=== PATIENT | female | born 1980 | race Caucasian/White ===

== ENCOUNTER 2016-12-17 15:43 | Emergency (ER) | payer BC ==
[~2016-12-17] VITALS: Ht 162.6 cm; Wt 99.8 kg
[~2016-12-17 15:43] MED LIST: CLON0.5T3 PO; DOCU100C5 PO; FLUO10CA13 PO; HYDR-2666 PO; HYDR-79 PO; LEVO25TA4 PO; LOXA25CA PO; MAGN30OR PO; MELO-156 PO; OLME20TA PO; OLME40TA PO; OLME5TAB4 PO; OXCA600T PO; OXYC-244 PO; SUMA100T3 PO; SUMA100T4 PO; SUMA50TA3 PO; TOPI100T90 PO; ZALE10CA16 PO
[2016-12-17] MEDS ORDERED: DICYCLOMINE HCL 20 MG TABLET PO ONE (16:45)
--- NOTE | 2016-12-17 17:03 | ED.ADGEN ---
Past History Past Medical History: Anxiety, Depression Past Surgical History: Cholecystectomy, , Hysterectomy, Tubal ligation Smoking: Greater than 1 pack/day Alcohol Use: None Drug Use: None Adult General Chief Complaint Chief Complaint Intermittent abdominal pain HPI HPI Patient is a 36-year-old female presents with chronic intermittent migratory abdominal pain which has had extensive workup in the ED, PCP and by her GI physician. Most recently she had a CT of her abdomen pelvis on 10/28/17, which was treated a complex left ovarian cyst and stable right liver hemangioma. Similarly, she has had a small bowel follow-through per Dr. Zacarias at [facility] which reports as normal. Today's pain has been going on for the past several days that is localizing to her right upper quadrant. Patient states it is different normal because her pain normally migratory. Patient has had previous cholecystectomy hysterectomy and right cell nephrectomy. No fever, vomiting, diarrhea or constipation. No dysuria or urinary frequency or urgency. No other acute symptoms or complaints. Patient's computed at bedside by significant other. Review of Systems Review of Systems ROS as per HPI. Current Medications Current Medications Current Medications Medications (Trade) Dose Ordered Sig/Mike Start Time Stop Time Status Last Admin Dose Admin Dicyclomine HCl (Bentyl) 20 mg 1X ONCE 12/17/16 16:45 12/17/16 16:46 DC 12/17/16 16:45 20 MG Allergies Allergies Allergies Coded Allergies Type Severity Reaction Last Updated Verified egg Adverse Reaction Intermediate Nausea and Vomiting 11/28/15 Yes Physical Exam Physical Exam Constitutional: Well developed, well nourished, no acute distress. HENT: Normocephalic, atraumatic, bilateral external ears normal, oropharynx moist, no oral exudates, nose normal. Eyes: PERRLA, EOMI, conjunctiva normal. Neck: Normal range of motion. Cardiovascular:Heart rate regular rhythm, no murmur. Lungs & Thorax: Bilateral breath sounds clear to auscultation. Abdomen: Bowel sounds normal, soft, please see compromising exam, right upper quadrant pain. No tenderness, rebound rigidity or guarding. Skin: Warm, dry. Extremities: No tenderness. Neurologic: Alert and oriented X 3, normal motor function, normal sensory function, no focal deficits noted Psychologic: Affect normal, judgement normal, mood normal. EKG EKG [] Radiology/Procedures Radiology/Procedures [] Impressions: Chronic recurrent abdominal pain with benign abdominal exam Course & Med Decision Making Course & Med Decision Making Pertinent Labs and Imaging studies reviewed. (See chart for details) [Medical records and CT reviewed. Bentyl given. Recommend following up with PCP and or GI physician for further management. Return precautions reviewed. ] Final Impression Final Impression [1. Chronic abdominal pain] Problems: Dragon Disclaimer Dragon Disclaimer This chart was dictated in whole or in part using Voice Recognition software in a busy, high-work load, and often noisy Emergency Department environment. It may contain unintended and wholly unrecognized errors or omissions. REDDY RIVERA DO Dec 17, 2016 16:36
[2016-12-17 17:14] LABS: BILIRUBIN,URINE SMALL (NEG); CLARITY,URINE CLEAR; COLOR,URINE YELLOW; NITRITE,URINE NEG (NEG); UROBILINOGEN,URINE 2 mg/dL (0.2 mg/dL)
[2016-12-17 17:16] LABS: GLUCOSE,URINE NEG (NEG)
[2016-12-17 17:30] VITALS: BP 132/71
== END 2016-12-17 17:25 | disposition home or self-care (01) ==
LOC: ER 15:43
DX: G89.29 Other chronic pain (principal); R10.11 Right upper quadrant pain; F17.210 Nicotine dependence, cigarettes, uncomplicated; Z90.49 Acquired absence of other specified parts of digestive tract; Z90.710 Acquired absence of both cervix and uterus; Z91.012 Allergy to eggs
CPT/HCPCS: 81003; 99282; 99284

== ENCOUNTER 2017-07-29 20:21 | Emergency (ER) | payer BC ==
[~2017-07-29 20:21] MED LIST changes: +DOCU100C28 PO; -DOCU100C5 PO; -HYDR-2666 PO; +HYDR-2758 PO; -MELO-156 PO; +MELO7.5T29 PO; -OLME20TA PO; +OLME20TA19 PO; -OLME40TA PO; +OLME40TA12 PO; -OXYC-244 PO; +OXYC-327 PO; +TOPI100T8 PO; -TOPI100T90 PO; -ZALE10CA16 PO; +ZALE10CA44 PO
[2017-07-29 20:26] VITALS: BP 183/97
[2017-07-29 21:48] LABS: BILIRUBIN,URINE NEG (NEG); CLARITY,URINE CLEAR; COLOR,URINE YELLOW; GLUCOSE,URINE NEG (NEG); NITRITE,URINE NEG (NEG); UROBILINOGEN,URINE 0.2 mg/dL (0.2 mg/dL)
[2017-07-29 21:49] LABS: BACTERIA,URINE 0 /HPF (0-FEW); SQUAMOUS EPITHELIAL CELL,UR MOD /LPF; WBC,URINE OCC /HPF (0-4)
--- NOTE | 2017-07-29 23:00 | ED.ADGEN ---
Past History Past Medical History: Anxiety, Depression Past Surgical History: Cholecystectomy, , Hysterectomy, Tubal ligation Smoking: Greater than 1 pack/day Alcohol Use: None Drug Use: None Adult General Chief Complaint Chief Complaint Pelvic pain HPI HPI Patient is a 37-year-old female with history of PCOS hysterectomy who presents with left lower quadrant pain, 3 days. Pain is described as sharp, deep, worse with palpation and movement. Pain is nonradiating. Patient denies urinary frequency urgency, flank pain. No nausea vomiting or diarrhea. Denies constipation. No flank pain or history of kidney stones. Patient states pain is similar to previous ovarian cysts. She has appointment to see her MATERIAL MOVER in 2 weeks and has an appointment for an outpatient ultrasound in 1 week. Review of Systems Review of Systems Review symptoms as per history of present illness. All other review symptoms are negative. Allergies Allergies Allergies Coded Allergies Type Severity Reaction Last Updated Verified egg Adverse Reaction Intermediate Nausea and Vomiting 11/28/15 Yes Physical Exam Physical Exam Constitutional: Well developed, well nourished, no acute distress, non-toxic appearance. [] HENT: Normocephalic, atraumatic, bilateral external ears normal, oropharynx moist, no oral exudates, nose normal. [] Eyes: PERRLA, EOMI, conjunctiva normal, no discharge. [] Neck: Normal range of motion, no tenderness, supple, no stridor. [] Cardiovascular:Heart rate regular rhythm, no murmur [] Lungs & Thorax: Bilateral breath sounds clear to auscultation [] Abdomen: Bowel sounds normal, soft, left lower quadrant/pelvic pain, tenderness , no rebound rigidity or guarding. Obesity compromising exam. [] Skin: Warm, dry, no erythema, no rash. [] Back: No tenderness, no CVA tenderness. [] Extremities: No tenderness, no cyanosis, no clubbing, ROM intact, no edema. [] Neurologic: Alert and oriented X 3, normal motor function, normal sensory function, no focal deficits noted. [] Psychologic: Affect normal, judgement normal, mood normal. [] Current Patient Data Lab Results Laboratory Tests Test 07/29/17 20:53 Urine Collection Type Void Urine Color Yellow Urine Clarity Clear Urine pH 7.0 Urine Specific Correll 1.020 Urine Protein Neg (NEG-TRACE) Urine Glucose (UA) Neg mg/dL (NEG) Urine Ketones (Stick) Neg mg/dL (NEG) Urine Blood Neg (NEG) Urine Nitrite Neg (NEG) Urine Bilirubin Neg (NEG) Urine Urobilinogen Dipstick 0.2 mg/dL (0.2 mg/dL) Urine Leukocyte Esterase Neg (NEG) Urine RBC 3-5 /HPF (0-2) Urine WBC Occ /HPF (0-4) Urine Squamous Epithelial Cells Mod /LPF Urine Bacteria 0 /HPF (0-FEW) Urine Mucus Slight /LPF EKG EKG [] Radiology/Procedures Radiology/Procedures [] Course & Med Decision Making Course & Med Decision Making Pertinent Labs and Imaging studies reviewed. (See chart for details) [Left lower quadrant/pelvic pain with previous history of hysterectomy and ovarian cyst. UA is unremarkable. Pain addressed. Patient has follow-up in place with her MATERIAL MOVER. Return precautions reviewed. Patient verbalizes understanding agreement discharge instructions prior to departure.] Final Impression Final Impression [1. pelvic pain in female 2. history of ovarian cysts] Problems: Dragon Disclaimer Dragon Disclaimer This electronic medical record was generated, in whole or in part, using a voice recognition dictation system. REDDY RIVERA DO Jul 29, 2017 23:00
[2017-07-29] MEDS ORDERED: HYDROcodone/APAP 5/325MG 1 TAB TABLET ONE (23:09)
[2017-07-29] MEDS ORDERED: HYDROcodone/APAP 5/325MG 1 TAB TABLET PO ONE (23:15)
== END 2017-07-29 23:05 | disposition home or self-care (01) ==
LOC: ER 20:21
DX: R10.2 Pelvic and perineal pain (principal); E28.2 Polycystic ovarian syndrome; F17.200 Nicotine dependence, unspecified, uncomplicated; Z90.49 Acquired absence of other specified parts of digestive tract; Z90.710 Acquired absence of both cervix and uterus; Z98.51 Tubal ligation status; Z98.890 Other specified postprocedural states; Z91.012 Allergy to eggs
CPT/HCPCS: 81001; 99283

== ENCOUNTER 2019-07-23 09:49 | Emergency (ER) | payer OTHER, BC ==
[~2019-07-23] VITALS: Ht 162.6 cm; Wt 117.9 kg
[~2019-07-23 09:49] MED LIST changes: +CLON0.5T11 PO; -CLON0.5T3 PO; +HYDR-1179 PO; +HYDR-2155 PO; -HYDR-2758 PO; -HYDR-79 PO; +OLME20TA17 PO; -OLME20TA19 PO; -OXCA600T PO; +OXCA600T9 PO; -OXYC-327 PO; +OXYC1TAB19 PO
--- NOTE | 2019-07-23 10:13 | PHYS DOC ---
Past History Past Medical History: IBS, Pancreatitis Past Surgical History: Cholecystectomy, , Hysterectomy, Tubal ligation Smoking: Greater than 1 pack/day Alcohol Use: Occasionally Drug Use: None Adult General Chief Complaint Chief Complaint: BACK PAIN OR INJURY [facility] HPI 39-year-old female presents with left-sided thoracic back pain. She was pulling a cart yesterday and it got stuck. She yanked at it, but it bounced her back. She did not have any pain at that time. When she went home she was having some soreness so she took a cyclobenzaprine she had left over from a previous injury. This allowed her to sleep. The patient woke up this morning, she was having twitching and what felt like muscle spasms on the left side of her mid thoracic spine. She did not fall. She did not have trauma. The patient didn't want to take a chance on a greater injury so she reported to her player. They advised she come here for evaluation. Patient denies numbness, tingling, change in sensation. She has no other complaints. Review of Systems Review of Systems Constitutional: Denies fever or chills [] Eyes: Denies change in visual acuity, redness, or eye pain [] HENT: Denies nasal congestion or sore throat [] Respiratory: Denies cough or shortness of breath [] Cardiovascular: No additional information not addressed in HPI [] GI: Denies abdominal pain, nausea, vomiting, bloody stools or diarrhea [] : Denies dysuria or hematuria [] Musculoskeletal: Left thoracic back pain[] Integument: Denies rash or skin lesions [] Neurologic: Denies headache, focal weakness or sensory changes [] Endocrine: Denies polyuria or polydipsia [] All other systems were reviewed and found to be within normal limits, except as documented in this note. Allergies Allergies Allergies Coded Allergies Type Severity Reaction Last Updated Verified egg Adverse Reaction Intermediate Nausea and Vomiting 11/28/15 Yes Physical Exam Physical Exam Constitutional: Well developed, well nourished, no acute distress, non-toxic appearance. [] HENT: Normocephalic, atraumatic, bilateral external ears normal, oropharynx moist, no oral exudates, nose normal. [] Eyes: PERRLA, EOMI, conjunctiva normal, no discharge. [] Neck: Normal range of motion, no tenderness, supple, no stridor. [] Cardiovascular:Heart rate regular rhythm, no murmur [] Lungs & Thorax: Bilateral breath sounds clear to auscultation [] Abdomen: Bowel sounds normal, soft, no tenderness, no masses, no pulsatile masses. [] Skin: Warm, dry, no erythema, no rash. [] Back: Mild paraspinal muscle tenderness at T8 to T11[] Extremities: No tenderness, no cyanosis, no clubbing, ROM intact, no edema. [] Neurologic: Alert and oriented X 3, normal motor function, normal sensory function, no focal deficits noted. [] Psychologic: Affect normal, judgement normal, mood normal. [] EKG EKG [] Radiology/Procedures Radiology/Procedures [] Impressions: Examination: 3 views of the thoracic spine HISTORY: History of back pain COMPARISON: None available. FINDINGS: Minimal thoracic dextroscoliosis. The thoracic vertebral body heights are maintained. Moderate intervertebral disc height loss identified throughout the thoracic spine. No evidence of listhesis. Partially visualized faint bilateral prominent interstitial markings likely chronic interstitial changes. IMPRESSION: 1. Moderate degenerative changes thoracic spine. Electronically signed by: Schuyler Hood MD (07/23/2019 10:34 AM) [id number] DICTATED AND SIGNED BY: SCHUYLER HOOD MD DATE: 07/23/19 1034 CC: REDDY HAIRSTON DO; JASMIN MACKENZIE ~ Course & Med Decision Making Course & Med Decision Making Pertinent Labs and Imaging studies reviewed. (See chart for details) The patient's thoracic x-rays negative except for some moderate degenerative change. I believe she likely strained her to rest paraspinal muscles. I will discharge her with advice to take 600 mg of ibuprofen 3 times a day and a prescription for Flexeril 10 mg 3 times a day as needed. She is stable for discharge at this time. [] Dragon Disclaimer Dragon Disclaimer This electronic medical record was generated, in whole or in part, using a voice recognition dictation system. Departure Departure: Impression: Primary Impression: Thoracic myofascial strain Disposition: 01 HOME, SELF-CARE Condition: STABLE Referrals: JASMIN MACKENZIE (PCP) Patient Instructions: Thoracic Strain Scripts Cyclobenzaprine Hcl (CYCLOBENZAPRINE HCL) 10 Mg Tablet 1 TAB PO TID PRN for MUSCLE SPASMS, #30 TAB Prov: REDDY HAIRSTON DO 07/23/19 Problem Qualifiers Primary Impression: Thoracic myofascial strain Encounter type: initial encounter Qualified Codes: S29.019A - Strain of muscle and tendon of unspecified wall of thorax, initial encounter REDDY HAIRSTON DO Jul 23, 2019 10:13
--- NOTE | 2019-07-23 10:37 | RAD ---
Examination: 3 views of the thoracic spine HISTORY: History of back pain COMPARISON: None available. FINDINGS: Minimal thoracic dextroscoliosis. The thoracic vertebral body heights are maintained. Moderate intervertebral disc height loss identified throughout the thoracic spine. No evidence of listhesis. Partially visualized faint bilateral prominent interstitial markings likely chronic interstitial changes. IMPRESSION: 1. Moderate degenerative changes thoracic spine. Electronically signed by: Schuyler Hood MD (07/23/2019 10:34 AM) [place] [id number]
[2019-07-23] MEDS ORDERED: CYCL-331 PO (11:13)
[2019-07-23 11:27] VITALS: BP 160/108
== END 2019-07-23 11:29 | disposition home or self-care (01) ==
LOC: ER 09:49
DX: S29.012A Strain of muscle and tendon of back wall of thorax, initial encounter (principal); K58.9 Irritable bowel syndrome, unspecified; F17.200 Nicotine dependence, unspecified, uncomplicated; Z90.49 Acquired absence of other specified parts of digestive tract; Z98.890 Other specified postprocedural states; Z90.710 Acquired absence of both cervix and uterus; Z98.51 Tubal ligation status; Z91.012 Allergy to eggs; X50.9XXA Other and unspecified overexertion or strenuous movements or postures, initial encounter; Y93.89 Activity, other specified; Y92.89 Other specified places as the place of occurrence of the external cause; Y99.8 Other external cause status
CPT/HCPCS: 72072; 99284

== ENCOUNTER 2020-07-21 18:36 | Emergency (ER) | payer BC, OTHER ==
[~2020-07-21] VITALS: Ht 162.6 cm; Wt 139.2 kg
[~2020-07-21 18:36] MED LIST changes: -CLON0.5T11 PO; +CLON0.5T4 PO; +CYCL-331 PO
[2020-07-21] MEDS ORDERED: IV NORMAL SALINE 1,000ML 1,000 ML IV SCH (18:48)
[2020-07-21 18:59] LABS: BASO # 0.1 x10^3/uL (0.0-0.2); BASO % 1 % (0-3); EOS # 0.1 x10^3/uL (0.0-0.7); EOS % 1 % (0-3); HEMATOCRIT 46.4 % (36.0-47.0); HEMOGLOBIN 15.9 g/dL (12.0-15.5); LYMPH # 3.2 x10^3/uL (1.0-4.8); LYMPH % 32 % (24-48); MEAN CORPUSCULAR HEMOGLOBIN 30 pg (25-35); MEAN CORPUSCULAR HGB CONC 34 g/dL (31-37); MEAN CORPUSCULAR VOLUME 88 fL (79-100); MONO # 0.6 x10^3/uL (0.0-1.1); MONO % 6 % (0-9); NEUT # 5.9 x10^3uL (1.8-7.7); NEUT % 60 % (31-73); PLATELET COUNT 218 x10^3/uL (140-400); RED CELL DISTRIBUTION WIDTH 13.2 % (11.5-14.5); WHITE BLOOD COUNT 9.9 x10^3/uL (4.0-11.0)
[2020-07-21] MEDS ORDERED: ASPIRIN CHEWABLE 81 MG TABLET. PO ONE (19:00)
[2020-07-21 19:26] LABS: CALCIUM 9.1 mg/dL (8.5-10.1); CREATININE 0.7 mg/dL (0.6-1.0); GFR 91.8; POTASSIUM 3.5 mmol/L (3.5-5.1)
--- NOTE | 2020-07-21 19:26 | PHYS DOC ---
Past History Past Medical History: Anxiety, IBS, Pancreatitis Past Surgical History: Cholecystectomy, , Hysterectomy, Tonsillectomy, Tubal ligation Smoking: Greater than 1 pack/day Alcohol Use: Occasionally Drug Use: None General Adult EDM: Chief Complaint: CHEST PAIN HPI: HPI: 40-year-old female presents with 2 episodes of chest pain today. The first 1 happened at 11 AM while she was at work. It lasted about 30 minutes. She states it felt like a belt of tightness around her chest. She was diaphoretic and short of breath but still able to work. After half an hour this episode went away. Later when she was at home, she had a second episode while she was in the shower. This only lasted for 10 or 15 minutes. She decided to in 1 day was concerning and should be checked out in the emergency room. She currently has no pain. She has no significant cardiac history. She has had a stress test that was negative a couple years ago. They are not following her for any cardiac issues. Patient denies fever chills. No known COVID-19 exposures. She does have anxiety at baseline and admits this could be related to her condition. Review of Systems: Review of Systems: Constitutional: Denies fever or chills Eyes: Denies change in visual acuity HENT: Denies nasal congestion or sore throat Respiratory: Denies cough or shortness of breath Cardiovascular: Chest pain GI: Denies abdominal pain, nausea, vomiting, bloody stools or diarrhea : Denies dysuria Musculoskeletal: Denies back pain or joint pain Integument: Denies rash Neurologic: Denies headache, focal weakness or sensory changes Endocrine: Denies polyuria or polydipsia Lymphatic: Denies swollen glands Psychiatric: Denies depression or anxiety Heart Score: HEART Score for Chest Pain: HEART Score for Chest Pain Response (Comments) Value History Moderately Suspicious 1 ECG Normal 0 Age < 45 0 Risk Factors 1 or 2 Risk Factors 1 Troponin < Normal Limit 0 Total 2 Risk Factors: Risk Factors: DM, Current or recent (<one month) smoker, HTN, HLP, family history of CAD, obesity. Risk Scores: Score 0 - 3: 2.5% MACE over next 6 weeks - Discharge Home Score 4 - 6: 20.3% MACE over next 6 weeks - Admit for Clinical Observation Score 7 - 10: 72.7% MACE over next 6 weeks - Early Invasive Strategies Current Medications: Current Meds: Current Medications Medications (Trade) Dose Ordered Sig/Mike Start Time Stop Time Status Last Admin Dose Admin Aspirin (Aspirin Chewable) 324 mg 1X ONCE 07/21/20 19:00 07/21/20 19:01 DC 07/21/20 19:02 324 MG Sodium Chloride 1,000 ml @ 100 mls/hr Q10H 07/21/20 18:48 07/22/20 04:47 07/21/20 19:02 100 MLS/HR Allergies: Allergies: Allergies Coded Allergies Type Severity Reaction Last Updated Verified egg Adverse Reaction Intermediate Nausea and Vomiting 11/28/15 Yes Physical Exam: PE: Constitutional: Well developed, well nourished, morbidly obese, no acute distress, non-toxic appearance. [] HENT: Normocephalic, atraumatic, bilateral external ears normal, oropharynx moist, no oral exudates, nose normal. [] Eyes: PERRLA, EOMI, conjunctiva normal, no discharge. [] Neck: Normal range of motion, no tenderness, supple, no stridor. [] Cardiovascular: Heart rate regular rhythm, no murmur [] Lungs & Thorax: Bilateral breath sounds clear to auscultation [] Abdomen: Bowel sounds normal, soft, no tenderness, no masses, no pulsatile masses. [] Skin: Warm, dry, no erythema, no rash. [] Back: No tenderness, no CVA tenderness. [] Extremities: No tenderness, no cyanosis, no clubbing, ROM intact, no edema. [] Neurologic: Alert and oriented X 3, normal motor function, normal sensory function, no focal deficits noted. [] Psychologic: Affect normal, judgement normal, mood normal. [] Current Patient Data: Labs: Laboratory Tests Test 07/21/20 18:45 White Blood Count 9.9 x10^3/uL (4.0-11.0) Red Blood Count 5.30 x10^6/uL (3.50-5.40) Hemoglobin 15.9 g/dL (12.0-15.5) H Hematocrit 46.4 % (36.0-47.0) Mean Corpuscular Volume 88 fL (79-100) Mean Corpuscular Hemoglobin 30 pg (25-35) Mean Corpuscular Hemoglobin Concent 34 g/dL (31-37) Red Cell Distribution Width 13.2 % (11.5-14.5) Platelet Count 218 x10^3/uL (140-400) Neutrophils (%) (Auto) 60 % (31-73) Lymphocytes (%) (Auto) 32 % (24-48) Monocytes (%) (Auto) 6 % (0-9) Eosinophils (%) (Auto) 1 % (0-3) Basophils (%) (Auto) 1 % (0-3) Neutrophils # (Auto) 5.9 x10^3uL (1.8-7.7) Lymphocytes # (Auto) 3.2 x10^3/uL (1.0-4.8) Monocytes # (Auto) 0.6 x10^3/uL (0.0-1.1) Eosinophils # (Auto) 0.1 x10^3/uL (0.0-0.7) Basophils # (Auto) 0.1 x10^3/uL (0.0-0.2) Troponin I Quantitative < 0.017 ng/mL (0-0.055) Vital Signs: Vital Signs Date Time Temp Pulse Resp B/P (MAP) Pulse Ox O2 Delivery O2 Flow Rate FiO2 07/21/20 18:38 98.6 88 20 176/119 (138) 99 07/21/20 18:36 Room Air EKG: EKG: Sinus rhythm, rate 91, normal axis, no ST elevations or depressions. [] Radiology/Procedures: Radiology/Procedures: [] Impressions: Exam: Chest one view INDICATION: Chest pain TECHNIQUE: Frontal view of the chest Comparisons: None FINDINGS: The cardiomediastinal silhouette and pulmonary vessels are within normal limits. The lung and pleural spaces are clear. IMPRESSION: No acute cardiopulmonary process. Electronically signed by: Soto Bose MD (07/21/2020 7:44 PM) [id number] DICTATED AND SIGNED BY: SOTO BOSE MD DATE: 07/21/20 194 CC: REDDY HAIRSTON DO; JASMIN MACKENZIE ~ Course & Med Decision Making: Course & Med Decision Making Pertinent Labs and Imaging studies reviewed. (See chart for details) The patient's EKG is unremarkable. Her labs are unremarkable. Her troponin is negative. Her chest x-ray is negative for acute findings. This does not appear to be cardiopulmonary in nature. I advised that the patient follow-up with her primary care physician if she continues to have episodes for further ev aluation. She is stable for discharge at this time. [] [place] Disclaimer: Dragon Disclaimer: This electronic medical record was generated, in whole or in part, using a voice recognition dictation system. Departure Departure: Impression: Primary Impression: Chest pain Qualified Codes: R07.9 - Chest pain, unspecified Disposition: HOME/RESIDENCE PRIOR TO ADM Condition: STABLE Referrals: JASMIN MACKENZIE (PCP) Patient Instructions: Chest Pain (Nonspecific), [id number] Justification of Admission: Justification of Admission: Justification of Admission Dx: N/A REDDY HAIRSTON DO Jul 21, 2020 19:25
[2020-07-21 19:32] LABS: ALBUMIN/GLOBULIN RATIO 1.1 (1.0-1.7); TOTAL BILIRUBIN 0.4 mg/dL (0.2-1.0); TOTAL PROTEIN 7.8 g/dL (6.4-8.2)
--- NOTE | 2020-07-21 19:47 | RAD ---
Exam: Chest one view INDICATION: Chest pain TECHNIQUE: Frontal view of the chest Comparisons: None FINDINGS: The cardiomediastinal silhouette and pulmonary vessels are within normal limits. The lung and pleural spaces are clear. IMPRESSION: No acute cardiopulmonary process. Electronically signed by: Soto Antoine MD (07/21/2020 7:44 PM) [id number]
[2020-07-21 20:49] VITALS: BP 149/79
[2020-07-21 20:50] LABS: BILIRUBIN,URINE NEG (NEG); CLARITY,URINE CLEAR; COLOR,URINE YELLOW; GLUCOSE,URINE NEG (NEG); NITRITE,URINE NEG (NEG); UROBILINOGEN,URINE 0.2 mg/dL (0.2 mg/dL)
[2020-07-21 20:51] LABS: BACTERIA,URINE 0 /HPF (0-FEW); WBC,URINE OCC /HPF (0-4)
--- NOTE | 2020-07-21 20:52 | EKG ---
[facility] ED [facility] [address] [place] [id number] Test Date: 2020-07-21 Test Time: 18:44:37 Pat Name: ITZEL ROACH Department: Room: Gender: F Ceramics Instructor: DIXON : 1980 Requested By: REDDY HAIRSTON Order Number: [id number] Reading MD: Measurements Intervals [place] Rate: 91 P: 58 UT: 172 QRS: 44 QRSD: 90 T: 47 QT: 358 QTc: 442 Interpretive Statements SINUS RHYTHM NORMAL ECG RI6.02 No previous ECG available for comparison
== END 2020-07-21 21:37 | disposition home or self-care (01) ==
LOC: ER 18:36
DX: R07.89 Other chest pain (principal); R61 Generalized hyperhidrosis; R06.02 Shortness of breath; F41.9 Anxiety disorder, unspecified; K58.9 Irritable bowel syndrome, unspecified; F17.200 Nicotine dependence, unspecified, uncomplicated; Z91.012 Allergy to eggs
CPT/HCPCS: 36415; 71045; 80053; 81001; 84484; 85025; 93005; 96360; 96361; 99285; J7030

== ENCOUNTER 2021-07-12 19:21 | Emergency (ER) | payer BC ==
[~2021-07-12] VITALS: Ht 165.1 cm; Wt 144.5 kg
[2021-07-12] MEDS ORDERED: IV NORMAL SALINE 1,000ML 1,000 ML IV ONE (19:30)
[2021-07-12] MEDS ORDERED: NALOXONE 2 MG/2 ML DISP.SYRIN. IV ONE (19:30)
--- NOTE | 2021-07-12 19:42 | PHYS DOC ---
Past History Past Medical History: Anxiety, Depression, Hypothyroid, IBS, Pancreatitis Past Medical History Limited secondary to altered mental status (JANESSA WATSON DO) Past Surgical History: Cholecystectomy, , Hysterectomy, Tonsillectomy, Tubal ligation Past Surgical History Limited secondary to altered mental status (JANESSA WATSON DO) Smoking: Cigarettes, Greater than 1 pack/day Alcohol Use: Occasionally Drug Use: None Social History Limited secondary to altered mental status (JANESSA WATSON DO) General Adult EDM: Chief Complaint: OVERDOSE HPI: HPI: 41-year-old female presents via EMS with report of intentional overdose that occurred at approximately 1500 today. Patient reportedly took approximately 60 tabs of Flexeril 10 mg as well as 6 tablets of oxycodone 5 mg in attempt to harm herself. These prescriptions belonged to her brother Saul Jerry. Patient reportedly has been having a "hard week." Patient does have a history of anxiety and depression. History of present illness limited secondary to altered mental status. (JANESSA WATSON DO) Review of Systems: Review of Systems: Review of systems limited secondary to altered mental status (JANESSA WATSON DO) Current Medications: Current Meds: Current Medications Medications (Trade) Dose Ordered Sig/Mike Start Time Stop Time Status Last Admin Dose Admin Naloxone HCl (Narcan) 1 mg 1X ONCE 07/12/21 19:30 07/12/21 19:32 DC Sodium Chloride 1,000 ml @ 1,000 mls/hr 1X ONCE 07/12/21 19:30 07/12/21 20:29 (JANESSA WATSON DO) Allergies: Allergies: Allergies Coded Allergies Type Severity Reaction Last Updated Verified egg Adverse Reaction Intermediate Nausea and Vomiting 11/28/15 Yes (JANESSA WATSON DO) Physical Exam: PE: Constitutional: Well developed, well nourished, somnolent, uncooperative HENT: Normocephalic, atraumatic Eyes: Pupils 3mm bilterally, EOMI, conjunctiva normal, no discharge Neck: Normal range of motion, no tenderness, supple Lungs & Thorax: No respiratory distress, equal chest rise and fall Abdomen: Soft, no tenderness Skin: Warm, dry, no erythema, no rash Extremities: No tenderness, ROM intact, no edema Neurologic: GCS 12 (eye3, verbal 4, motor 5)somnolent, normal motor function, normal sensory function, no focal deficits noted Psychologic: Obtunded, judgment abnormal (JANESSA WATSON DO) EKG: EKG: @1929 Sinus tachycardia at 116bpm, NO ST elevation, QRS 90ms, QT/QTc 322/454ms, occasional PVC with some baseline artifact (JANESSA WATSON DO) Radiology/Procedures: Radiology/Procedures: [] (JANESSA WATSON DO) Heart Score: C/O Chest Pain: N/A (JANESSA WATSON DO) Course & Med Decision Making: Course & Med Decision Making Pertinent Labs and Imaging studies reviewed. (See chart for details) Patient presents with report of overdose with Flexeril and oxycodone that occurred at approximately 1500. Patient is somnolent but responds to painful stimuli. Patient is moving all extremities. EKG stable. Labs obtained and posted to chart. Poison control contacted with recommendation of supportive care with benzodiazepines utilized for any agitation. Recommendation to monitor patient in department for at least 8 hours and then until patient has become asymptomatic. Patient did require a few doses of Ativan as she continued to get out of bed and appeared unsteady on her feet with concern that she might harm herself. Patient also got a dose of Geodon. Patient somnolent throughout the night without issue. Will await psychiatric assessment team assessment in the a.m. 0600- Sign out given to Dr. Manzo for further evaluation and final disposition. (JANESSA WATSON DO) Course & Med Decision Making I oversaw care of patient during daytime shift 07/13/2021. There were no significant and/or noteworthy events. Patient was at baseline mentation and remained voluntary for inpatient psych transfer. Signout given to oncoming physician at night. Please defer to their documentation regarding future care of patient while in ER who is pending inpatient psychiatric transfer (ROSI MANZO DO) Dragon Disclaimer: Dragon Disclaimer: This electronic medical record was generated, in whole or in part, using a voice recognition dictation system. (JANESSA WATSON DO) Departure Departure: Impression: Primary Impression: Suicidal overdose Qualified Codes: T50.902A - Poisoning by unspecified drugs, medicaments and biological substances, intentional self-harm, initial encounter Disposition: 02 SHORT TERM HOSPITAL Condition: STABLE Referrals: JASMIN MACKENZIE (PCP) JANESSA WATSON DO Jul 12, 2021 19:42 ROSI MANZO DO Jul 14, 2021 16:14
[2021-07-12 20:15] LABS: BASO % 1 % (0-3); EOS # 0.1 x10^3/uL (0.0-0.7); EOS % 1 % (0-3); HEMATOCRIT 44.1 % (36.0-47.0); LYMPH # 2.1 x10^3/uL (1.0-4.8); LYMPH % 26 % (24-48); MEAN CORPUSCULAR HEMOGLOBIN 30 pg (25-35); MEAN CORPUSCULAR HGB CONC 34 g/dL (31-37); MEAN CORPUSCULAR VOLUME 87 fL (79-100); MONO # 0.4 x10^3/uL (0.0-1.1); MONO % 5 % (0-9); NEUT # 5.7 x10^3uL (1.8-7.7); NEUT % 68 % (31-73); PLATELET COUNT 178 x10^3/uL (140-400); RED BLOOD COUNT 5.09 x10^6/uL (3.50-5.40); RED CELL DISTRIBUTION WIDTH 13.7 % (11.5-14.5); WHITE BLOOD COUNT 8.3 x10^3/uL (4.0-11.0)
[2021-07-12 20:19] LABS: BILIRUBIN,URINE NEG (NEG); CLARITY,URINE CLEAR; COLOR,URINE YELLOW; GLUCOSE,URINE NEG (NEG)
[2021-07-12 20:20] LABS: BACTERIA,URINE 0 /HPF (0-FEW); NITRITE,URINE NEG (NEG); RBC,URINE 0 /HPF (0-2); UROBILINOGEN,URINE 0.2 mg/dL (0.2 mg/dL); WBC,URINE 0 /HPF (0-4)
[2021-07-12 20:22] LABS: BARBITURATES NEG (NEG); BENZODIAZEPINES NEG (NEG); CANNABINOIDS NEG (NEG); COCAINE NEG (NEG); METHADONE NEG (NEG); OPIATES NEG (NEG); PHENCYCLIDINE NEG (NEG)
[2021-07-12 20:23] LABS: AMPHETAMINE/METHAMPHETAMINE NEG (NEG)
[2021-07-12 20:33] LABS: CALCIUM 8.6 mg/dL (8.5-10.1); CREATININE 0.7 mg/dL (0.6-1.0); GFR 91.3; POTASSIUM 3.9 mmol/L (3.5-5.1)
[2021-07-12 20:39] LABS: ALBUMIN 3.7 g/dL (3.4-5.0); ALBUMIN/GLOBULIN RATIO 1.2 (1.0-1.7); MAGNESIUM 2.1 mg/dL (1.8-2.4); TOTAL BILIRUBIN 0.6 mg/dL (0.2-1.0); TOTAL PROTEIN 6.9 g/dL (6.4-8.2)
[2021-07-12 20:54] LABS: ACETAMIN < 2 mcg/mL (10-30); ETHANOL < 10 mg/dL (0-10); SALIC < 2.8 mg/dL (2.8-20.0)
[2021-07-12] MEDS ORDERED: ZIPRASIDONE IM 20 MG VIAL. IM ONE (23:00)
--- NOTE | 2021-07-13 02:59 | EKG ---
[address] [address] Test Date: 2021-07-12 Test Time: 19:29:44 Pat Name: ITZEL ROACH Department: Room: Gender: F Analysis Manager: : [id number] Requested By: JANESSA WATSON Order Number: [id number] Reading MD: Measurements Intervals [place] Rate: 116 P: 51 CT: 144 QRS: 25 QRSD: 90 T: 45 QT: 322 QTc: 454 Interpretive Statements SINUS TACHYCARDIA OTHERWISE NORMAL ECG RI6.02 No previous ECG available for comparison
--- NOTE | 2021-07-13 08:26 | NUR ---
Gave patient a breakfast tray
[2021-07-13] MEDS ORDERED: PANTOPRAZOLE 40 MG TABLET. PO ONE (09:45)
[2021-07-13 14:10] VITALS: BP 148/102
[2021-07-13] MEDS ORDERED: OLANZapine IM 10 MG VIAL. IM ONE (23:45)
[2021-07-14] MEDS ORDERED: ACETAMINOPHEN 325 MG TABLET PO ONE (00:30)
== END 2021-07-14 01:00 ==
LOC: EEVIPCON 19:21 → ER 19:21
DX: T48.1X2A Poisoning by skeletal muscle relaxants [neuromuscular blocking agents], intentional self-harm, initial encounter (principal); T40.2X2A Poisoning by other opioids, intentional self-harm, initial encounter; R41.82 Altered mental status, unspecified; F41.9 Anxiety disorder, unspecified; F32.9 Major depressive disorder, single episode, unspecified; E03.9 Hypothyroidism, unspecified; K58.9 Irritable bowel syndrome, unspecified; F17.210 Nicotine dependence, cigarettes, uncomplicated; Z91.012 Allergy to eggs; Y92.89 Other specified places as the place of occurrence of the external cause
CPT/HCPCS: 36415; 80053; 80307; 80329; 81001; 81025; 82553; 83735; 84484; 85025; 87426; 93005; 96361; 96372; 96374; 96376; 99285; G0480; J2060; J3486; J7030; U0003